=== PATIENT | female | born 1970 | race Caucasian/White ===

== ENCOUNTER → 2022-05-28 08:16 | Outpatient (CLI) | payer BC, SELFPAY ==
--- NOTE | 2022-05-28 08:17 | MM_ITS ---
PROCEDURE INFORMATION: Exam: MG Bilateral Screening 3D Mammography Exam date and time: 05/28/2022 8:33 AM Age: 51 years old Clinical indication: Screening. No family history of breast cancer. TECHNIQUE: Imaging protocol: Bilateral Screening tomosynthesis and 2D mammography including computer-aided detection (CAD) when performed. COMPARISON: 1. MG DMBAV DIG MAMM-BILATERAL ADD VIEWS 08/29/2011 1:09 PM 2. MG DMSB DIGITAL MAMM-SCREEN BILATERAL 08/06/2011 3:16 PM FINDINGS: MAMMOGRAPHY: Breast composition: The breasts are almost entirely fatty. Mass: No suspicious mass. Architectural distortion: None. Calcifications: No suspicious calcifications. Asymmetric density: None. Skin thickening: None. Axillary adenopathy: None. IMPRESSION: No mammographic evidence of malignancy. Annual screening is recommended unless otherwise clinically indicated. ASSESSMENT: BI-RADS Category 1: Negative
== END ==
PROVIDERS: PCP Obstetrics & Gynecology; Visit Provider Obstetrics & Gynecology
DX: Z12.31 Encounter for screening mammogram for malignant neoplasm of breast (principal)
CPT/HCPCS: 77063; 77067

== ENCOUNTER 2023-07-25 07:22 | Outpatient (CLI) | payer BC, SELFPAY ==
--- NOTE | 2023-07-25 07:32 | US_ITS ---
FINAL REPORT TECHNIQUE: Ultrasound images of the abdomen were obtained. CLINICAL HISTORY: ELEVATED LIVER ENZYMES,H/O PANCREATITIS COMPARISON: None FINDINGS: ABDOMINAL ULTRASOUND COMPLETE: The liver is normal in size and echogenicity without focal abnormality. Gallstones are noted in the gallbladder. The common duct is normal. The right kidney measures 11.5 cm in length and is normal in echogenicity without hydronephrosis. The left kidney measures 10.9 cm in length and is normal in echogenicity without hydronephrosis. The spleen is unremarkable. The pancreas is obscured by overlying bowel gas. The visualized portions of the aorta and the IVC are normal. The vena cava is unremarkable. IMPRESSION: Gallstones in the gallbladder. Reviewed, Interpreted and Dictated by Bart Arizmendi MD Transcribed by Jing Whitaker Authenticated and [facility]
== END 2023-07-25 23:59 | disposition home or self-care (01) ==
LOC: RAD 07:23
PROVIDERS: PCP Family Medicine; Visit Provider Family Medicine
DX: R74.8 Abnormal levels of other serum enzymes (principal); Z87.19 Personal history of other diseases of the digestive system
CPT/HCPCS: 76700